=== PATIENT | female | born 1935 | race Caucasian/White ===

== ENCOUNTER 2022-08-12 09:32 | Inpatient (IN) ==
[~2022-08-12 09:32] MED LIST: Etomidate 40 mg/20 ml (2 MG/ML) 20 ml VIAL (40 mg) ONE; Rocuronium 50 mg VIAL 10 mg/ml 5 ml VIAL (50 mg) ONE
[2022-08-12] MEDS ORDERED: NS 0.9% 1000 ml BAG 1,000 ML IV ONE (09:36)
[2022-08-12 10:16] LABS: Hematocrit 43.3 % (35-45); Hemoglobin 13.5 g/dL (11.5-14.3); Mean Corpuscular Hemoglobin 26.3 pg (27-33); Mean Corpuscular Hgb Conc 31.2 g/dL (31-36); Mean Corpuscular Volume 84.5 fL (80-97); Mean Platelet Volume 10.6 fL (7.5-11.2); Platelet Count 266 10^3/uL (150-450); Red Blood Count 5.12 10^6/uL (3.63-4.92); Red Cell Distribution Width 16.6 % (12-17); White Blood Count 25.3 10^3/uL (3.8-11.8)
[2022-08-12 10:41] LABS: Creatinine, Serum 3.57 mg/dL (0.51-0.95); Potassium 4.1 mmol/L (3.5-5.0)
[2022-08-12 10:42] LABS: Albumin 3.2 g/dL (3.2-5.2); C Reactive Protein 408.23 mg/L (<8.01); Calcium 8.7 mg/dL (8.6-10.3); Globulin 3.1 g/dL (2-4); Magnesium 2.8 mg/dL (1.9-2.7); Phosphorus 10.1 mg/dL (2.5-5.0); Total Bilirubin 0.8 mg/dL (0.2-1.0); Total Protein 6.3 g/dL (6.4-8.9)
[2022-08-12 10:59] LABS: ABS Lymphocytes 0.3 10^3/uL (1.0-4.8); ABS Monocytes 1.7 10^3/uL (0.0-0.9); ABS Neutrophils 23.3 10^3/uL (1.5-7.6); ABS Nucleated RBC 0.01 10^3/ul; Eosinophil % 0.1 %; Lymphocyte % 1.2 %; RBC Morphology Normal (Normal)
[2022-08-12] MEDS ORDERED: Ondansetron 4 mg VIAL 2 MG/ML 2 ml VIAL IV ONE (11:04)
[2022-08-12] MEDS ORDERED: Dextrose 50% Syringe 50 ml 25 GM/50 ML SYRINGE ONE (11:15)
[2022-08-12] MEDS ORDERED: Sodium Bicarb 8.4% Vial 50 ML 100 MEQ in D5W 1000 ml BAG 900 ML IV ONE (11:18)
[2022-08-12] MEDS ORDERED: Dextrose 50% Syringe 50 ml 25 GM/50 ML SYRINGE IV PUSH ONE ×2 (11:19→11:20)
[2022-08-12 11:30] LABS: Urine Appearance Cloudy; Urine Bilirubin Negative (Negative); Urine Blood Negative (Negative); Urine Color Yellow; Urine Glucose Negative (Negative); Urine Ketones Negative (Negative); Urine Nitrite Negative (Negative); Urine Protein 1+(30 mg/dL) (Negative); Urine Specific Gravity 1.016 (1.002-1.030); Urine Urobilinogen Negative (Negative)
[2022-08-12 11:40] LABS: Urine Bacteria Absent (Absent); Urine Red Blood Cell Trace(0-2/hpf) (Absent); Urine Squamous Epithelial Cell Present (Absent); Urine White Blood Cell Trace(0-5/hpf) (Absent)
[2022-08-12 11:53] LABS: High Sensitivity Troponin 1 Hr 635 pg/mL (<15)
[2022-08-12] MEDS ORDERED: Linezolid 600 MG IVPREMIX(*) 600 MG/300 ML BAG IVPB ONE (12:05)
[2022-08-12] MEDS ORDERED: Lactated Ringers 1000 ml BAG 1,000 ML IV ONE ×3 (12:06→17:00)
[2022-08-12] MEDS ORDERED: Lidocaine 1% VIAL 10 MG/ML VIAL 30 ML INJ ONE (12:49)
[2022-08-12] MEDS ORDERED: Sodium Bicarb 8.4% Vial 50 ML 100 MEQ in D5W 1000 ml BAG 900 ML IV SCH (13:00)
[2022-08-12] MEDS ORDERED: Piperacillin/Tazobac ADVAN 3.375 GM in NS 0.9% 100 ml BAG 100 ML IV ONE (13:33)
[2022-08-12] MEDS ORDERED: Ondansetron 4 mg VIAL 2 MG/ML 2 ml VIAL IV PRN (13:34)
[2022-08-12] MEDS ORDERED: Ondansetron 4 mg VIAL 2 MG/ML 2 ml VIAL ONE (13:43)
[2022-08-12] MEDS ORDERED: Heparin DRIP 25,000 UNITS BAG 25,000 UNITS/500 ML BAG IV SCH (13:45)
[2022-08-12] MEDS ORDERED: Zosyn per Pharmacy NOTE FOLLOW UP SCH (14:00)
[2022-08-12] MEDS ORDERED: Heparin 5000 UNITS/ML 1 mL VIAL IV SCH (14:00)
[2022-08-12] MEDS ORDERED: Lactated Ringers 1000 ml BAG 1,000 ML IV SCH (16:00)
[2022-08-12 16:59] LABS: Calcium 7.3 mg/dL (8.6-10.3); Creatinine, Serum 3.22 mg/dL (0.51-0.95); Potassium 3.5 mmol/L (3.5-5.0); eGFR CKD-EPI 13.6 (>60)
[2022-08-12] MEDS ORDERED: Norepinephrine 16MCG/ML BAGD5W 4,000 MCG/250 ML BAG IV ONE (17:22)
[2022-08-12] MEDS: Norepinephrine 16MCG/ML BAGD5W 4,000 MCG/250 ML BAG IV SCH (17:30)
[2022-08-12] MEDS ORDERED: ZOSYN 3.375 GM Q12H per EXTENDED INFUSION IV SCH ×2 (18:00)
[2022-08-12] MEDS: KCL 20 MEQ/100 ML IVPREMIX 20 MEQ/100 ML BAG IV SCH ×2 (18:22→20:41)
[2022-08-12 20:03] LABS: Hemoglobin 11.8 g/dL (11.5-14.3); Mean Corpuscular Hemoglobin 25.8 pg (27-33); Mean Corpuscular Volume 83.3 fL (80-97); Platelet Count 181 10^3/uL (150-450); Red Blood Count 4.56 10^6/uL (3.63-4.92); White Blood Count 25.4 10^3/uL (3.8-11.8)
[2022-08-12 20:22] LABS: Urine Appearance Turbid; Urine Bilirubin Negative (Negative); Urine Blood 3+ (Negative); Urine Color Amber; Urine Glucose Negative (Negative); Urine Ketones Negative (Negative); Urine Nitrite Negative (Negative); Urine Protein 2+(100 mg/dL) (Negative); Urine Specific Gravity 1.016 (1.002-1.030); Urine Urobilinogen Negative (Negative)
[2022-08-12 20:39] LABS: Urine Bacteria 1+ (Absent); Urine Red Blood Cell 3+(>10/hpf) (Absent); Urine Squamous Epithelial Cell Present (Absent); Urine White Blood Cell 3+(>20/hpf) (Absent)
[2022-08-12 20:46] LABS: ABS Eosinophils 1.8 10^3/uL (0.0-0.5); ABS Lymphocytes 0.4 10^3/uL (1.0-4.8); ABS Monocytes 1.5 10^3/uL (0.0-0.9); ABS Neutrophils 21.6 10^3/uL (1.5-7.6); ABS Nucleated RBC 0.01 10^3/ul; Eosinophil % 7.3 %; Lymphocyte % 1.7 %
[2022-08-12 20:55] LABS: INR 2.76 (0.88-1.18)
[2022-08-12 20:56] LABS: Activated Partial Thrombo Time 260.7 seconds (26.0-38.0)
[2022-08-12 21:33] LABS: Hematocrit 38.4 % (35-45); Hemoglobin 12.1 g/dL (11.5-14.3); Mean Corpuscular Hemoglobin 25.9 pg (27-33); Mean Corpuscular Hgb Conc 31.4 g/dL (31-36); Mean Corpuscular Volume 82.5 fL (80-97); Mean Platelet Volume 10.4 fL (7.5-11.2); Platelet Count 169 10^3/uL (150-450); Red Blood Count 4.65 10^6/uL (3.63-4.92); Red Cell Distribution Width 16.5 % (12-17); White Blood Count 24.6 10^3/uL (3.8-11.8)
[2022-08-12] MEDS ORDERED: Linezolid 600 MG IVPREMIX(*) 600 MG/300 ML BAG IVPB SCH (22:00)
[2022-08-12 22:05] LABS: ABS Eosinophils 2.3 10^3/uL (0.0-0.5); ABS Lymphocytes 0.4 10^3/uL (1.0-4.8); ABS Monocytes 1.6 10^3/uL (0.0-0.9); ABS Neutrophils 20.3 10^3/uL (1.5-7.6); ABS Nucleated RBC 0.02 10^3/ul; Eosinophil % 9.5 %; Lymphocyte % 1.5 %; Macrocytosis 1+; Microcytosis 1+; Nucleated Red Blood Cells % 0.1 /100 WBC (0.0-0.4)
[2022-08-12 22:50] LABS: PCO2 Arterial 25 mmHg (35-45); PO2 Arterial 83 mmHg (80-100)
[2022-08-13] MEDS: Norepinephrine 16MCG/ML BAGD5W 4,000 MCG/250 ML BAG IV SCH (00:46)
[2022-08-13 01:05] LABS: Hematocrit 39.6 % (35-45); Hemoglobin 12.5 g/dL (11.5-14.3)
[2022-08-13 01:22] LABS: Calcium 7.1 mg/dL (8.6-10.3); Creatinine, Serum 3.51 mg/dL (0.51-0.95); Potassium 4.5 mmol/L (3.5-5.0); eGFR CKD-EPI 12.2 (>60)
[2022-08-13] MEDS ORDERED: Sodium Bicarbonate 8.4% SYR 50 ml SYRINGE ONE ×4 (01:42→02:10)
[2022-08-13] MEDS ORDERED: Sodium Bicarbonate 8.4% SYR 50 ml SYRINGE IV ONE (01:45)
[2022-08-13] MEDS ORDERED: Rocuronium 50 mg VIAL 10 mg/ml 5 ml VIAL (50 mg) ONE ×2 (01:52→01:56)
[2022-08-13 01:54] LABS: PO2 Arterial 99 mmHg (80-100)
[2022-08-13 02:03] LABS: PCO2 Arterial <20 mmHg (35-45)
[2022-08-13] MEDS ORDERED: EPINEPHrine SYR 0.1MG/ML 10 ml SYRINGE IV ONE (02:10)
[2022-08-13] MEDS ORDERED: Calcium CHLORIDE 10% SYRINGE 1 GM/10 ML ONE (02:10)
[2022-08-13] MEDS ORDERED: Phenylephrine DRIP 0.2 MG/ML in NS 0.9% 250 ML (PHA mix) IV SCH (02:45)
[2022-08-13] MEDS ORDERED: Chlorhexidine MOUTHWASH 0.12% 15 ML UDC TOPICAL SCH (03:00)
[2022-08-13] MEDS ORDERED: Sodium Bicarb 8.4% Vial 50 ML 150 MEQ in D5W 1000 ml BAG 1,000 ML IV SCH (03:00)
[2022-08-13 03:19] LABS: Hematocrit 34.2 % (35-45); Hemoglobin 10.8 g/dL (11.5-14.3); Mean Corpuscular Hemoglobin 27.3 pg (27-33); Mean Corpuscular Hgb Conc 31.4 g/dL (31-36); Mean Corpuscular Volume 86.9 fL (80-97); Mean Platelet Volume 11.3 fL (7.5-11.2); Platelet Count 113 10^3/uL (150-450); Red Blood Count 3.94 10^6/uL (3.63-4.92); Red Cell Distribution Width 17.1 % (12-17); White Blood Count 20.7 10^3/uL (3.8-11.8)
[2022-08-13 04:03] LABS: INR 3.13 (0.88-1.18)
[2022-08-13 04:20] VITALS: BP 62/45
[2022-08-13 04:38] LABS: Platelet Morphology Large
[2022-08-13 04:39] LABS: ABS Eosinophils 1.1 10^3/uL (0.0-0.5); ABS Lymphocytes 0.9 10^3/uL (1.0-4.8); ABS Monocytes 0.9 10^3/uL (0.0-0.9); ABS Neutrophils 17.8 10^3/uL (1.5-7.6); ABS Nucleated RBC 0.03 10^3/ul; Eosinophil % 5.3 %; Lymphocyte % 4.3 %; Nucleated Red Blood Cells % 0.1 /100 WBC (0.0-0.4)
[2022-08-13] MEDS ORDERED: Aspirin EC 81 mg TAB.EC (enteric coated) PO SCH (09:00)
[2022-08-14 19:18] LABS: Adenovirus F40/41 Negative (Negative); Astrovirus Negative (Negative); Cryptosporidium species Negative (Negative); Cyclospora cayetanensis Negative (Negative); Entamoeba histolytica Negative (Negative); Enteroaggregative E.coli(EAEC) Negative (Negative); Enteropathogenic Ecoli(EPEC) Negative (Negative); Enterotoxigenic Ecoli(ETEC) Negative (Negative); Norovirus GI/GII Negative (Negative); Plesiomonas shigelloides Negative (Negative); Salmonella species Negative (Negative); Sapovirus Negative (Negative); Shiga toxin producing E. coli Negative (Negative); Shigella/Enteroinvasive E.coli Negative (Negative); Specimen Source STOOL; Vibrio cholerae Negative (Negative); Yersinia species Negative (Negative)
== END 2022-08-13 06:42 | disposition expired | DRG 871 ==
LOC: ED 09:32 → EDHOLD 13:46 → ICU 14:34
PROVIDERS: ADMIT Internal Medicine; ATTEND Internal Medicine